=== PATIENT | female | born 1970 | race Two or more races ===

== ENCOUNTER 2018-04-13 15:39 | Emergency (ER) | payer SELFPAY ==
[~2018-04-13] VITALS: Ht 157.5 cm; Wt 68.0 kg
--- NOTE | 2018-04-13 15:39 | NUR ---
PT BIBRA 89 C/O RIGHT SIDE ABDOMINAL PAIN STARTED AFTER LUNCH. AAXO4, RESPIRATIONS EVEN AND UNLABORED, NO SOB, NAD NOTED, VSS, PENDING MD MORFIN
[2018-04-13] MEDS ORDERED: MORPHINE SULFATE INJ 4 MG/ML DISP.SYRIN ONE (15:51)
[2018-04-13] MEDS ORDERED: ONDANSETRON HCL/PF 4 MG/2 ML VIAL ONE (15:51)
[2018-04-13 16:00] LABS: BASOPHILS # (AUTO) 0.1 /CMM (0.0-0.2); BASOPHILS % (AUTO) 0.4 % (0.0-2.0); EOSINOPHILS % (AUTO) 0.3 % (0.0-6.0); HEMATOCRIT 43 % (33-45); HEMOGLOBIN 14.4 g/dL (11.5-14.8); LYMPHOCYTES # (AUTO) 0.9 /CMM (0.8-4.8); LYMPHOCYTES % (AUTO) 5.6 % (20.0-44.0); MEAN CORPUSCULAR HGB CONC 34 g/dl (31.0-36.0); MEAN CORPUSCULAR VOLUME 91 fL (82-100); MONOCYTES # (AUTO) 0.8 /CMM (0.1-1.30); MONOCYTES % (AUTO) 5.3 % (2.0-12.0); NEUTROPHILS % (AUTO) 88.4 % (43.0-81.0); PLATELET COUNT (AUTO) 394 /CMM (150-450); WHITE BLOOD COUNT (AUTO) 15.9 K/uL (4.3-11.0)
[2018-04-13] MEDS ORDERED: IV NS 0.9% 1,000 ML BAG IV ONE (16:00)
[2018-04-13] MEDS ORDERED: MORPHINE SULFATE INJ 2 MG/ML DISP.SYRIN IV ONE (16:00)
[2018-04-13] MEDS ORDERED: ONDANSETRON HCL/PF 4 MG/2 ML VIAL IV ONE (16:00)
--- NOTE | 2018-04-13 16:06 | NUR ---
PT UNABLE TO GIVE URINE SAMPLE AT THIS TIME
[2018-04-13 16:09] LABS: CALCIUM, SERUM 9.3 mg/dL (8.5-10.1)
[2018-04-13 16:15] LABS: ALBUMIN 3.5 g/dL (3.4-5.0); BILIRUBIN,DIRECT 0.1 mg/dL (0.0-0.2); BILIRUBIN,TOTAL 0.5 mg/dL (0.2-1.0); TOTAL PROTEIN, SERUM 7.8 g/dL (6.4-8.2)
[2018-04-13] MEDS ORDERED: POTASSIUM CHLORIDE 20 MEQ TAB.PRT.SR PO ONE ×2 (16:30→16:45)
[2018-04-13] MEDS ORDERED: KETOROLAC TROMETHAMINE INJ 30 MG/ML VIAL IV ONE (17:00)
[2018-04-13] MEDS ORDERED: KETOROLAC TROMETHAMINE INJ 30 MG/ML VIAL ONE (17:07)
--- NOTE | 2018-04-13 17:57 | NUR ---
Patient discharged to home in stable condition. Written and verbal after care instructions given. Patient verbalizes understanding of instruction. IV removed. Catheter intact and site benign. Pressure and 4x4 applied to site. No bleeding noted.
[2018-04-13 17:58] VITALS: BP 139/80
== END 2018-04-13 17:59 | disposition home or self-care (01) ==
LOC: ER 15:42
DX: N20.0 Calculus of kidney (principal); E87.6 Hypokalemia; Z98.890 Other specified postprocedural states; Z60.2 Problems related to living alone
CPT/HCPCS: 36415; 80048-TC; 80076-TC; 83690-TC; 84702-TC; 85025-TC; A4606; J1885; J2270; J2405; J7030; Z7610